=== PATIENT | male | born 1955 | race Caucasian/White ===

== ENCOUNTER 2023-07-25 09:35 | Outpatient (CLI) | payer MEDICARE, OTHER ==
[2023-07-25] MEDS ORDERED: Magnevist 469MG/ML 20 ML VIAL ONE (11:08)
== END 2023-07-25 09:36 | disposition home or self-care (01) ==
LOC: CSHMRI 09:35
PROVIDERS: ATTEND Urology
DX: C61 Malignant neoplasm of prostate (principal); N40.0 Benign prostatic hyperplasia without lower urinary tract symptoms; Z98.890 Other specified postprocedural states
CPT/HCPCS: 72197

== ENCOUNTER 2024-06-12 10:11 | Outpatient (CLI) | payer MEDICARE, OTHER ==
[2024-06-12] MEDS ORDERED: Magnevist 469MG/ML 20 ML VIAL ONE (12:25)
== END 2024-06-12 10:12 | disposition home or self-care (01) ==
LOC: CSHMRI 10:11
PROVIDERS: ATTEND Urology
DX: C61 Malignant neoplasm of prostate (principal); N40.0 Benign prostatic hyperplasia without lower urinary tract symptoms; Z98.890 Other specified postprocedural states; R93.89 Abnormal findings on diagnostic imaging of other specified body structures
CPT/HCPCS: 72197